=== PATIENT | female | born 1995 | race African-American/Black ===

== ENCOUNTER 2024-02-14 11:51 | Emergency (ER) | payer SELFPAY ==
[2024-02-14 12:39] LABS: Specific Gravity 1.026 (1.005-1.030)
[2024-02-14 12:41] LABS: Specific Gravity 1.026 (1.005-1.030); Sqamous Epithelial <5 /HPF (None Seen); Urine Bacteria None Seen /HPF (<20); Urine Bilirubin NEGATIVE (Negative); Urine Blood Negative (Negative); Urine Clarity Turbid (Clear); Urine Color Light-Yellow (Yellow); Urine Culture Reflex Order REFLEXED; Urine Glucose NEGATIVE (Negative); Urine Ketones NEGATIVE (Negative); Urine Microscopic Reflex YN ORDER UMIC; Urine Mucus 2+ /HPF (None Seen); Urine Nitrite NEGATIVE (Negative); Urine Protein TRACE (Negative); Urine Urobilinogen Normal (Normal); Urine WBC 20-50 /HPF (<5); Urine Yeast (Budding) Trace /HPF (None Seen)
[2024-02-14] MEDS ORDERED: CEFTRIAXONE 1000 MG/VIAL ONE (13:07)
[2024-02-14] MEDS ORDERED: CIPROFLOXACIN HCL 500 MG TAB ONE (13:08)
[2024-02-14] MEDS ORDERED: FLUCONAZOLE 100 MG TAB ONE (13:08)
[2024-02-14] MEDS ORDERED: LIDOCAINE 2% MPF 5 ML VIAL ONE (13:08)
[2024-02-14] MEDS ORDERED: PHENAZOPYRIDINE 100MG TAB PO ONE (13:08)
--- NOTE | 2024-02-14 13:14 | ER ---
Nurse's Notes [facility] Name: Jalyn Zavala Age: 28 yrs Sex: Female : 1995 Arrival Date: 02/14/2024 Time: 11:51 Bed 20 Private MD: Diagnosis: Candidiasis of vulva and vagina;Candidiasis, unspecified;UTI/ Urinary tract infection, site not specified Presentation: 02/13 12:14 Chief complaint: Patient states: "I THINK I HAVE A YEAST INFECTION". Coronavirus bp screen: At this time, the client does not indicate any symptoms associated with coronavirus-19. Ebola Screen: No symptoms or risks identified at this time. Initial Sepsis Screen: Does the patient meet any 2 criteria? No. Patient's initial sepsis screen is negative. Does the patient have a suspected source of infection? No. Patient's initial sepsis screen is negative. Risk Assessment: Do you want to hurt yourself or someone else? Patient reports no desire to harm self or others. Onset of symptoms is unknown. 12:14 Method Of Arrival: Ambulatory bp 12:14 Acuity: SAMIRA 4 bp Triage Assessment: 12:16 General: Appears in no apparent distress. Behavior is appropriate for age. Pain: Denies bp pain. : Reports vaginal itching. 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 - Infectious Disease History:: Denies. - Social history:: Smoking status: unknown. - Family history:: not pertinent. Screenin:40 [facility] ED Fall Risk Assessment (Adult) History of falling in the last 3 months, me1 including since admission No falls in past 3 months (0 pts) Confusion or Disorientation No (0 pts) Intoxicated or Sedated No (0 pts) Impaired Gait No (0 pts) Mobility Assist Device Used No (0 pt) Altered Elimination No (0 pt) Score/Fall Risk Level 0 - 2 = Low Risk Maintained a safe environment, Provided non-skid footwear, Hourly rounding (assess needs \\T\\ fall precautionary measures) done. Abuse screen: Denies threats or abuse. Nutritional screening: No deficits noted. Tuberculosis screening: No symptoms or risk factors identified. Assessment: 12:40 General: Appears comfortable, well groomed, well developed, well nourished, Behavior is me1 calm, cooperative, appropriate for age, Reports concern for a yeast infection. Pain: Denies pain. Neuro: Level of Consciousness is awake, alert, obeys commands, Oriented to person, place, time, situation, Appropriate for age. Cardiovascular: Patient's skin is warm and dry. Respiratory: Airway is patent Respiratory effort is even, unlabored, Respiratory pattern is regular, symmetrical. GI: No signs and/or symptoms were reported involving the gastrointestinal system. : Reports vaginal itching. EENT: No signs and/or symptoms were reported regarding the EENT system. Derm: Skin is intact, is healthy with good turgor, Skin is pink, warm \\T\\ dry. Musculoskeletal: No signs and/or symptoms reported regarding the musculoskeletal system. Vital Signs: 12:14 BP 117 / 77; Pulse 78; Resp 16; Temp 97.9; Pulse Ox 100% ; Weight 47.63 kg; Height 5 bp ft. 2 in. ; 13:32 BP 109 / 74; Pulse 76; Resp 15; Temp 98.4; Pulse Ox 100% ; me1 12:14 Body Mass Index 19.20 (47.63 kg, 157.48 cm) bp ED Course: 11:54 Patient arrived in ED. al6 11:58 Carloz Reyes MD is Attending Physician. yamile 12:16 Triage completed. bp 12:17 Arm band placed on. bp 12:35 Teodora Steve, KATHY is Primary Nurse. me1 12:40 Patient has correct armband on for positive identification. Bed in low position. Call me1 light in reach. Side rails up X2. Provided Education on: POC. Verbalized understanding.. Client placed on continuous cardiac and pulse oximetry monitoring. NIBP monitoring applied. Pulse ox on. NIBP on. 12:40 No provider procedures requiring assistance completed. Patient did not have IV access me1 during this emergency room visit. Administered Medications: 13:11 Drug: Ciprofloxacin PO 500 mg PO once Route: PO; me1 13:18 Follow up: Response: No adverse reaction me1 13:11 Drug: Fluconazole PO 200 mg PO once Route: PO; me1 13:18 Follow up: Response: No adverse reaction me1 13:11 Drug: Phenazopyridine PO 200 mg PO once Route: PO; me1 13:18 Follow up: Response: No adverse reaction me1 13:17 Drug: Rocephin (cefTRIAXone) IM 1 grams IM once Route: IM; Site: right gluteus; me1 13:32 Follow up: Response: No adverse reaction me1 Medication: 12:40 VIS not applicable for this client. me1 Outcome: 13:13 Discharge ordered by . yamile 13:33 Discharged to home ambulatory, me1 13:33 Condition: stable 13:33 Discharge instructions given to patient, Instructed on discharge instructions, follow up and referral plans. medication usage, Demonstrated understanding of instructions, follow-up care, medications, Prescriptions given X 3, 13:33 Patient left the ED. me1 Signatures: Carloz Reyes MD MD cha Peltier, Brian, RN RN Teodora Steve RN RN me1 [email or web address]
--- NOTE | 2024-02-14 13:14 | EDPHYS ---
Physician Documentation [facility] Name: Jalyn Zavala Age: 28 yrs Sex: Female : 1995 Arrival Date: 02/14/2024 Time: 11:51 Bed 20 Private MD: ALE Physician Carloz Reyes HPI: 02/13 13:09 This 28 yrs old Female presents to ER via Ambulatory with complaints of yamile Vaginal Itching. 13:09 The patient presents with perineal itching, urinary symptoms, dysuria, vaginal yamile discharge, that is white discharge. Onset: The symptoms/episode began/occurred 2 day(s) ago. Modifying factors: The symptoms are alleviated by nothing, the symptoms are aggravated by nothing. Associated signs and symptoms: Pertinent positives: urinary frequency, vaginal discharge. Severity of symptoms: At their worst the symptoms were mild, in the emergency department the symptoms are unchanged. 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 - Infectious Disease History:: Denies. - Social history:: Smoking status: unknown. - Family history:: not pertinent. ROS: 13:09 Constitutional: Negative for fever, chills, and weight loss, Eyes: Negative for injury, yamile pain, redness, and discharge, ENT: Negative for injury, pain, and discharge, Neck: Negative for injury, pain, and swelling, Cardiovascular: Negative for chest pain, palpitations, and edema, Respiratory: Negative for shortness of breath, cough, wheezing, and pleuritic chest pain, Abdomen/GI: Negative for abdominal pain, nausea, vomiting, diarrhea, and constipation, Back: Negative for injury and pain, MS/Extremity: Negative for injury and deformity, Skin: Negative for injury, rash, and discoloration, Neuro: Negative for headache, weakness, numbness, tingling, and seizure, Psych: Negative for depression, anxiety, suicide ideation, homicidal ideation, and hallucinations, Allergy/Immunology: Negative for hives, rash, and allergies, Endocrine: Negative for neck swelling, polydipsia, polyuria, polyphagia, and marked weight changes, Hematologic/Lymphatic: Negative for swollen nodes, abnormal bleeding, and unusual bruising, 13:09 : Positive for urinary symptoms, pelvic pain, burning with urination, vaginal discharge, vaginal itching, Exam: 13:09 Constitutional: This is a well developed, well nourished patient who is awake, alert, yamile and in no acute distress. Head/Face: Normocephalic, atraumatic. Eyes: Pupils equal round and reactive to light, extra-ocular motions intact. Lids and lashes normal. Conjunctiva and sclera are non-icteric and not injected. Cornea within normal limits. Periorbital areas with no swelling, redness, or edema. ENT: Nares patent. No nasal discharge, no septal abnormalities noted. Tympanic membranes are normal and external auditory canals are clear. Oropharynx with no redness, swelling, or masses, exudates, or evidence of obstruction, uvula midline. Mucous membranes moist. Neck: Trachea midline, no thyromegaly or masses palpated, and no cervical lymphadenopathy. Supple, full range of motion without nuchal rigidity, or vertebral point tenderness. No Meningismus. Chest/axilla: Normal chest wall appearance and motion. Nontender with no deformity. No lesions are appreciated. Cardiovascular: Regular rate and rhythm with a normal S1 and S2. No gallops, murmurs, or rubs. Normal PMI, no JVD. No pulse deficits. Respiratory: Lungs have equal breath sounds bilaterally, clear to auscultation and percussion. No rales, rhonchi or wheezes noted. No increased work of breathing, no retractions or nasal flaring. Abdomen/GI: Soft, non-tender, with normal bowel sounds. No distension or tympany. No guarding or rebound. No evidence of tenderness throughout. Back: No spinal tenderness. No costovertebral tenderness. Full range of motion. Skin: Warm, dry with normal turgor. Normal color with no rashes, no lesions, and no evidence of cellulitis. MS/ Extremity: Pulses equal, no cyanosis. Neurovascular intact. Full, normal range of motion., bilateral aka Neuro: Awake and alert, GCS 15, oriented to person, place, time, and situation. Cranial nerves II-XII grossly intact. Motor strength 5/5 in all extremities. Sensory grossly intact. Cerebellar exam normal. Normal gait. Psych: Awake, alert, with orientation to person, place and time. Behavior, mood, and affect are within normal limits. Vital Signs: 12:14 BP 117 / 77; Pulse 78; Resp 16; Temp 97.9; Pulse Ox 100% ; Weight 47.63 kg; Height 5 bp ft. 2 in. ; 13:32 BP 109 / 74; Pulse 76; Resp 15; Temp 98.4; Pulse Ox 100% ; me1 12:14 Body Mass Index 19.20 (47.63 kg, 157.48 cm) bp MDM: 11:58 Medical Screening Exam initiated [facility] 12:14 Medical Screening Exam initiated [facility] 13:11 Differential diagnosis: urinary tract infection, vaginosis. Data reviewed: vital signs, [facility] nurses notes, lab test result(s). Consideration of Admission/Observation Escalation of care including admission/observation considered. I considered the following discharge prescriptions or medication management in the emergency department Medications were administered in the Emergency Department. See MAR. Independent interpretation of the following test(s) in the Emergency Department. Test considered but Not performed: Labs: no cbc, no comp met. Care significantly affected by the following chronic conditions: none. 02/13 12:00 Order name: Urinalysis w/ reflexes; Complete Time: 13:02 [facility] 02/13 12:00 Order name: PREGU; Complete Time: 13:02 [facility] 02/13 12:44 Order name: Urine Culture EDMS Administered Medications: 13:11 Drug: Ciprofloxacin PO 500 mg PO once Route: PO; me1 13:18 Follow up: Response: No adverse reaction me1 13:11 Drug: Fluconazole PO 200 mg PO once Route: PO; me1 13:18 Follow up: Response: No adverse reaction me1 13:11 Drug: Phenazopyridine PO 200 mg PO once Route: PO; me1 13:18 Follow up: Response: No adverse reaction me1 13:17 Drug: Rocephin (cefTRIAXone) IM 1 grams IM once Route: IM; Site: right gluteus; me1 13:32 Follow up: Response: No adverse reaction me1 Disposition Summary: 02/14/24 13:13 Discharge Ordered Notes: Location: Home yamile Problem: new yamile Symptoms: have improved yamile Condition: Stable yamile Diagnosis - Candidiasis of vulva and vagina yamile - Candidiasis, unspecified yamile - UTI/ Urinary tract infection, site not specified yamile Followup: yamile - With: Private Physician - When: 2 - 3 days - Reason: Recheck today's complaints, Continuance of care, Re-evaluation by your physician Discharge Instructions: - Discharge Summary Sheet yamile - Dysuria yamile - Urinary Tract Infection, Adult yamile - Vaginal Yeast Infection, Adult yamile - Urinary Tract Infection, Adult, [id number] yamile - Vaginitis yamile - Antibiotic Medicine, Adult, [id number] [facility] - Skin Yeast Infection [facility] Forms: - Medication Reconciliation Form [facility] - Antibiotic Education [facility] - Prescription Opioid Use [facility] - Patient Portal Instructions [facility] - Leadership Thank You Letter [facility] Prescriptions: - Cipro 250 mg Oral tablet - take 1 tablet ORAL route every 12 hours; 14 tablet; Refills: 0, Product [facility] Selection Permitted - Pyridium 200 mg Oral Tablet - take 1 tablet ORAL route every 8 hours for 3 days; 9 tablet; Refills: 0, [facility] Product Selection Permitted - Fluconazole 200 mg Oral tablet - take 1 tablet ORAL route once take 1 tab po weekly begining next week; 3 yamile tablet; Refills: 0, Product Selection Permitted Signatures: Dispatcher [employer] Carloz Vo MD MD cha Peltier, Brian, RN RN bp Teodora Steve, RN RN me1 Corrections: (The following items were deleted from the chart) 12:00 12:00 Urinalysis+U.LAB.BRZ ordered. EDNC EDMS 12:00 12:00 Test, Urine+UC.LAB.BRZ ordered. EDNC EDMS
[2024-02-14 13:57] VITALS: O2SAT 100
[2024-02-14 14:02] VITALS: BP 109/74; TEMP 98.4
== END 2024-02-14 13:33 | disposition home or self-care (01) ==
LOC: ER 11:51
DX: B37.31 Acute candidiasis of vulva and vagina (principal); N39.0 Urinary tract infection, site not specified
CPT/HCPCS: 81001; 81025; 87086; 87088; 96372; 99284; J0696; J2003

== ENCOUNTER 2024-02-17 19:26 | Emergency (ER) | payer SELFPAY ==
[2024-02-17 20:08] LABS: Urine Bacteria None Seen /HPF (<20); Urine Bilirubin 2+ (Negative); Urine Blood Negative (Negative); Urine Clarity Extremely Turbid (Clear); Urine Color Dark-Yellow (Yellow); Urine Crystals Unidentified Few /HPF (None Seen); Urine Culture Reflex Order REFLEXED; Urine Glucose NEGATIVE (Negative); Urine Ketones NEGATIVE (Negative); Urine Micro Reflex YN NO BILL MICROSCOPIC; Urine Mucus Slight /HPF (None Seen); Urine Nitrite 2+ (Negative); Urine Protein NEGATIVE (Negative); Urine Urobilinogen 2+ (Normal); Urine WBC >50 /HPF (<5); Urine WBC Clump Rare /HPF (None Seen); Urine Yeast (Budding) Occasional /HPF (None Seen)
--- NOTE | 2024-02-17 20:44 | ER ---
Nurse's Notes [facility] Name: Jalyn Zavala Age: 28 yrs Sex: Female : 1995 Arrival Date: 02/17/2024 Time: 19: Bed 8 Private MD: Diagnosis: Acute vaginitis;Candidiasis of vulva and vagina Presentation: 02/16 19:45 Chief complaint: Patient states: I was treated earlier this week for UTI taking bm8 Ciprofloxacin, Pyridium and after those were done I was supposed to start Diflucan. The itching and burning with pain is not improving. Coronavirus screen: At this time, the client does not indicate any symptoms associated with coronavirus-19. Ebola Screen: Patient negative for fever greater than or equal to 101.5 degrees Fahrenheit, and additional compatible Ebola Virus Disease symptoms Patient denies exposure to infectious person. Patient denies travel to an Ebola-affected area in the 21 days before illness onset. No symptoms or risks identified at this time. Initial Sepsis Screen: Does the patient meet any 2 criteria? No. Patient's initial sepsis screen is negative. Does the patient have a suspected source of infection? No. Patient's initial sepsis screen is negative. Risk Assessment: Do you want to hurt yourself or someone else? Patient reports no desire to harm self or others. Onset of symptoms is unknown. 19:45 Method Of Arrival: Ambulatory bm8 19:45 Acuity: SAMIRA 3 bm8 Triage Assessment: 19:48 General: Appears in no apparent distress. comfortable, Behavior is calm, cooperative, bm8 appropriate for age. Pain: Complains of pain in posterior aspect of right lateral abdomen and posterior aspect of left lateral abdomen Pain currently is 7 out of 10 on a pain scale. Quality of pain is described as burning. EENT: No deficits noted. No signs and/or symptoms were reported regarding the EENT system. Neuro: No deficits noted. Level of Consciousness is awake, alert, obeys commands, Oriented to person, place, time, situation, Appropriate for age. Cardiovascular: No deficits noted. Denies chest pain, Capillary refill < 3 seconds in bilateral fingers Patient's skin is warm and dry. Respiratory: Airway is patent Trachea midline Respiratory effort is even, unlabored, Respiratory pattern is regular, symmetrical. GI: No signs and/or symptoms were reported involving the gastrointestinal system. : Urine is clear, Reports burning with urination, pain in bilateral flank(s), vaginal itching. Derm: No signs and/or symptoms reported regarding the dermatologic system. Musculoskeletal: No signs and/or symptoms reported regarding the musculoskeletal system. 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 - Infectious Disease History:: Denies. - Social history:: Smoking status: Patient denies any tobacco usage or history of. Patient/guardian denies using alcohol, street drugs. - Family history:: not pertinent. Screenin:00 [facility] ED Fall Risk Assessment (Adult) History of falling in the last 3 months, ay including since admission No falls in past 3 months (0 pts) Confusion or Disorientation No (0 pts) Intoxicated or Sedated No (0 pts) Impaired Gait No (0 pts) Mobility Assist Device Used No (0 pt) Altered Elimination No (0 pt) Score/Fall Risk Level 0 - 2 = Low Risk Oriented to surroundings, Maintained a safe environment, Educated pt \T\ family on fall prevention, incl call for assistance when getting out of bed. Abuse screen: Denies threats or abuse. Denies injuries from another. Nutritional screening: No deficits noted. Tuberculosis screening: No symptoms or risk factors identified. Assessment: 20:00 General: Appears in no apparent distress. uncomfortable, Behavior is calm, cooperative. ay Pain: Complains of pain in lower back Pain currently is 7 out of 10 on a pain scale. Neuro: Level of Consciousness is awake, alert, obeys commands, Oriented to person, place, time, situation, Speech is normal. Cardiovascular: Reports Capillary refill < 3 seconds. Respiratory: Airway is patent Respiratory effort is even, unlabored, Respiratory pattern is regular, symmetrical. GI: Bowel sounds present X 4 quads. : No signs and/or symptoms were reported regarding the genitourinary system. EENT: No signs and/or symptoms were reported regarding the EENT system. Derm: No signs and/or symptoms reported regarding the dermatologic system. Musculoskeletal: No signs and/or symptoms reported regarding the musculoskeletal system. Vital Signs: 19:45 BP 133 / 90; Pulse 70; Resp 17; Temp 98.1; Pulse Ox 99% ; Weight 47.63 kg; Height 5 ft. bm8 2 in. ; Pain 7/10; 21:00 BP 125 / 82; Pulse 76; Resp 20; Pulse Ox 100% on R/A; ay 19:45 Body Mass Index 19.20 (47.63 kg, 157.48 cm) bm8 19:45 Pain Scale: Adult bm8 [place] Coma Score: 20:00 Eye Response: spontaneous(4). Motor Response: obeys commands(6). Verbal Response: ay oriented(5). Total: 15. 02/17 07:06 Eye Response: spontaneous(4). Motor Response: obeys commands(6). Verbal Response: sp4 oriented(5). Total: 15. ED Course: 02/16 19:27 Patient arrived in ED. mr 19:45 Georgi Bess, RN is Primary Nurse. bm8 19:48 Triage completed. bm8 19:48 Arm band placed on left wrist. bm8 20:00 Patient has correct armband on for positive identification. Bed in low position. Call ay light in reach. Side rails up X2. Provided Education on: plan of care. 20:00 Urine W/Microscopic (UAM) Sent. ay 20:00 Urine Culture Sent. ay 20:10 Miko Merrill MD is Attending Physician. sp4 20:42 Yessy Hou MD is Referral Physician. sp4 21:15 Patient did not have IV access during this emergency room visit. ay 21:16 No provider procedures requiring assistance completed. ay Administered Medications: 21:14 Drug: Rocephin (cefTRIAXone) IM 1 grams IM once Route: IM; Site: right deltoid; ay 21:21 Follow up: Response: Medication administered at discharge. ay 21:14 Drug: metroNIDAZOLE PO 500 mg PO once Route: PO; ay 21:21 Follow up: Response: Medication administered at discharge. ay 21:14 Drug: AZITHromycin PO 1 grams PO once Route: PO; ay 21:21 Follow up: Response: Medication administered at discharge. ay 21:14 Drug: Ibuprofen PO 400 mg PO once Route: PO; ay 21:21 Follow up: Response: Medication administered at discharge. ay 21:14 Drug: Ondansetron PO 8 mg PO once Route: PO; ay 21:20 Follow up: Response: Medication administered at discharge. ay 21:14 Drug: Lidocaine Infiltration (1 %) 5 ml 5 ml Infiltration once; to bedside Volume: 5 ay ml; Route: Infiltration; 21:21 Follow up: Response: Medication administered at discharge. ay Medication: 20:00 VIS not applicable for this client. ay Outcome: 20:43 Discharge ordered by MD. suarez 21:15 Discharged to home ambulatory, ay 21:15 Condition: stable 21:15 Discharge instructions given to patient, Instructed on discharge instructions, follow up and referral plans. medication usage, Demonstrated understanding of instructions, follow-up care, medications, 21:16 Patient left the ED. ay Signatures: Lucina Gavin Reg Reg mr Potepalov, Sergey, MD MD sp4 Georgi Bess, RN RN bm8 Donna Kirby RN RN ay
--- NOTE | 2024-02-17 20:44 | EDPHYS ---
Physician Documentation [facility] – [place], [place] Name: Jalyn Zavala Age: 28 yrs Sex: Female : 1995 Arrival Date: 02/17/2024 Time: 19:26 Bed 8 Private MD: ED Physician Miko Merrill HPI: 02/16 20:10 This 28 yrs old Black Female presents to ER via Ambulatory with complaints of Vaginal sp4 Itching, Vaginal Pain. 20:33 On 02/14/2024 patient was prescribed Cipro, Pyridium, and Fluconazole . sp4 02/17 07:06 Patient presents with complaint of worsening vaginal itching and discomfort. Patient sp4 was here on 02/14/2024 and was prescribed Cipro by radium on fluconazole which did not improve her symptoms.. 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 - Infectious Disease History:: Denies. - Social history:: Smoking status: Patient denies any tobacco usage or history of. Patient/guardian denies using alcohol, street drugs. - Family history:: not pertinent. ROS: 02/17 07:06 Constitutional: Negative for fever, chills, and weight loss, positive for vaginal sp4 itching and discomfort All other systems are negative, Exam: 07:06 Constitutional: This is a well developed, well nourished patient who is awake, alert, sp4 and in no acute distress. Head/Face: Normocephalic, atraumatic. Eyes: Pupils equal round and reactive to light, extra-ocular motions intact. Lids and lashes normal. Conjunctiva and sclera are not injected. Cornea within normal limits. Periorbital areas with no swelling, redness, or edema. ENT: Nares patent. No nasal discharge, no septal abnormalities noted. Tympanic membranes are normal and external auditory canals are clear. Oropharynx with no redness, swelling, or masses, exudates, or evidence of obstruction, uvula midline. Mucous membranes moist. Neck: Trachea midline, no thyromegaly or masses palpated, and no cervical lymphadenopathy. Supple, full range of motion without nuchal rigidity, or vertebral point tenderness. Chest/axilla: Normal chest wall appearance and motion. Nontender with no deformity. No lesions are appreciated. Cardiovascular: Regular rate and rhythm with a normal S1 and S2. No gallops, murmurs, or rubs. Normal PMI, no JVD. No pulse deficits. Respiratory: Lungs have equal breath sounds bilaterally, clear to auscultation and percussion. No rales, rhonchi or wheezes noted. No increased work of breathing, no retractions or nasal flaring. Abdomen/GI: Soft, with normal bowel sounds. No distension or tympany. No guarding or rebound. No evidence of tenderness throughout. Back: No spinal tenderness. No costovertebral tenderness. Pelvic Exam: Normal external genitalia. Speculum exam with closed cervical os, no bleeding noted. 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 Normal color with no rashes, no lesions, and no evidence of cellulitis. MS/ Extremity: Pulses equal, no cyanosis. Neurovascular intact. Full, normal range of motion. Neuro: Awake and alert, GCS 15, oriented to person, place, time, and situation. Cranial nerves II-XII grossly intact. Motor strength 5/5 in all extremities. Sensory grossly intact. Vital Signs: 02/16 19:45 BP 133 / 90; Pulse 70; Resp 17; Temp 98.1; Pulse Ox 99% ; Weight 47.63 kg; Height 5 ft. bm8 2 in. ; Pain 7/10; 21:00 BP 125 / 82; Pulse 76; Resp 20; Pulse Ox 100% on R/A; ay 19:45 Body Mass Index 19.20 (47.63 kg, 157.48 cm) bm8 19:45 Pain Scale: Adult bm8 Alfie Coma Score: 20:00 Eye Response: spontaneous(4). Motor Response: obeys commands(6). Verbal Response: ay oriented(5). Total: 15. 02/17 07:06 Eye Response: spontaneous(4). Motor Response: obeys commands(6). Verbal Response: sp4 oriented(5). Total: 15. MDM: 02/16 20:10 Medical Screening Exam initiated sp4 02/17 07:08 Differential diagnosis: taylor infection, cervicitis, dysmenorrhea, nonspecific sp4 abdominal pain, pelvic inflammatory disease. Data reviewed: vital signs, nurses notes, lab test result(s). ED course: Patient has signs of vaginitis possible early candidiasis. Patient will be given Rocephin, azithromycin, prescribed Flagyl and 10-day course of Diflucan.. 02/16 19:51 Order name: Urine Culture [facility] 02/16 19:51 Order name: Urine W/Microscopic (UAM); Complete Time: 20:33 [facility] 02/16 20:10 Order name: Test, Urine; Complete Time: 20:33 sp4 Administered Medications: 02/16 21:14 Drug: Rocephin (cefTRIAXone) IM 1 grams IM once Route: IM; Site: right deltoid; ay 21:21 Follow up: Response: Medication administered at discharge. ay 21:14 Drug: metroNIDAZOLE PO 500 mg PO once Route: PO; ay 21:21 Follow up: Response: Medication administered at discharge. ay 21:14 Drug: AZITHromycin PO 1 grams PO once Route: PO; ay 21:21 Follow up: Response: Medication administered at discharge. ay 21:14 Drug: Ibuprofen PO 400 mg PO once Route: PO; ay 21:21 Follow up: Response: Medication administered at discharge. ay 21:14 Drug: Ondansetron PO 8 mg PO once Route: PO; ay 21:20 Follow up: Response: Medication administered at discharge. ay 21:14 Drug: Lidocaine Infiltration (1 %) 5 ml 5 ml Infiltration once; to bedside Volume: 5 ay ml; Route: Infiltration; 21:21 Follow up: Response: Medication administered at discharge. ay Disposition Summary: 02/17/24 20:43 Discharge Ordered Notes: Location: Home sp4 Problem: new sp4 Symptoms: have improved sp4 Condition: Stable sp4 Diagnosis - Acute vaginitis sp4 - Candidiasis of vulva and vagina sp4 Followup: sp4 - With: Yessy Hou MD - When: 7 - 10 days - Reason: Recheck today's complaints Discharge Instructions: - Discharge Summary Sheet sp4 - Vaginal Yeast Infection, Adult sp4 Forms: - Patient Portal Instructions sp4 Prescriptions: - Flagyl 500 mg Oral tablet - take 1 tablet ORAL route every 8 hours for 3 days; 9 tablet; Refills: 0, sp4 Product Selection Permitted - Ibuprofen 600 mg Oral Tablet - take 1 tablet ORAL route every 6 hours As needed take with food; 30 tablet; sp4 Refills: 0, Product Selection Permitted - Fluconazole 200 mg Oral tablet - take 1 tablet ORAL route once daily; 10 tablet; Refills: 0, Product Selection sp4 Permitted Signatures: Dispatcher [employer] Miko Gomez MD MD sp4 Georgi Bess, RN RN bm8 Donna Kirby RN RN ay
[2024-02-17] MEDS ORDERED: CEFTRIAXONE 1000 MG/VIAL ONE (20:53)
[2024-02-17] MEDS ORDERED: IBUPROFEN 400 MG TAB ONE (20:53)
[2024-02-17] MEDS ORDERED: AZITHROMYCIN 250 MG TAB ONE (20:53)
[2024-02-17] MEDS ORDERED: ONDANSETRON 4 MG (ODT) TAB ONE (20:54)
[2024-02-17] MEDS ORDERED: FLUCONAZOLE 100 MG TAB ONE (20:54)
[2024-02-17] MEDS ORDERED: metroNIDAZOLE 500 MG TABLET ONE (20:54)
[2024-02-17] MEDS ORDERED: LIDOCAINE 1% MPF 5 ML VIAL ONE (21:01)
[2024-02-17 21:22] VITALS: BP 133/90; TEMP 98.1; O2SAT 99
== END 2024-02-17 21:16 | disposition home or self-care (01) ==
LOC: ER 19:26
DX: B37.31 Acute candidiasis of vulva and vagina (principal)
CPT/HCPCS: 81001; 81025; 87086; 87088; 96372; 99284; J0696; J2003; Q0162